=== PATIENT | male | born 1985 | race African-American/Black ===

== ENCOUNTER → 2023-09-02 | Outpatient (CLI) | payer OTHER ==
[2023-09-02 12:27] LABS: Basophils # (auto) 0 10 ^3/uL (0-0.2); Basophils % (auto) 0.6 % (0.0-2.0); Eosinophils # (auto) 0.1 10 ^3/uL (0-0.8); Eosinophils % (auto) 2.1 % (0.0-7.0); Hematocrit 47.2 % (41.0-53.0); Hemoglobin 15.4 g/dL (13.5-17.5); Lymphocytes # (auto) 1.2 10 ^3/uL (0.4-5.4); Lymphocytes % (auto) 38.2 % (10.0-50.0); Mean Corpuscular Hemoglobin 27.1 pg (28.0-32.0); Mean Corpuscular Hgb Conc. 32.6 g/dL (32.0-36.0); Monocytes # (auto) 0.5 10 ^3/uL (0-1.3); Neutrophils # (auto) 1.4 10 ^3/uL (1.6-8.6); Neutrophils % (auto) 43.1 % (37.0-80.0); Nucleated Red Blood Cells % 0.2 %; Red Blood Cells 5.69 10^6/uL (4.5-5.90); White Blood Cell 3.2 10^3/uL (4.4-10.8)
[2023-09-02 13:08] LABS: Alanine Aminotransferase 35 U/L (7-40); Albumin 4.3 g/dL (3.2-4.8); Alkaline Phosphatase 62 U/L (46-116); Anion Gap 7 (5-15); Aspartate Aminotransferase 32 U/L (13-40); BUN/Creatinine Ratio 10.1 (10.0-20.0); Blood Urea Nitrogen 10 mg/dL (9-23); Calcium 9.8 mg/dL (8.5-10.1); Carbon Dioxide 31 mmol/L (20-30); Chloride 102 mmol/L (98-107); Cholesterol 211 mg/dL (< 200); Glucose 87 mg/dL (74-106); LDL Cholesterol 146 mg/dL (< 100); Sodium 140 mmol/L (136-145); Triglycerides 76 mg/dL (< 150)
[2023-09-02 13:09] LABS: Bilirubin, Direct 0.2 mg/dL (<0.3); Bilirubin, Total 0.7 mg/dL (0.2-1.0); HDL Cholesterol 50 mg/dL (40-59); Total Protein 8.8 g/dL (5.7-8.2)
[2023-09-02 13:12] LABS: Free T3 3.64 pg/mL (2.3-4.2); Free T4 (Free Thyroxine) 0.96 ng/dL (0.89-1.76)
== END | disposition home or self-care (01) ==
LOC: LAB 11:59
PROVIDERS: ATTEND Student in an Organized Health Care Education/Training Program
DX: R07.9 Chest pain, unspecified (principal); R00.2 Palpitations; Z82.49 Family history of ischemic heart disease and other diseases of the circulatory system
CPT/HCPCS: 36415; 80053; 80061; 80076; 82947; 84403; 84439; 84443; 84481; 85025

== ENCOUNTER → 2023-09-02 | Outpatient (CLI) | payer OTHER | END | disposition home or self-care (01) | LOC: XYW 14:29 | PROVIDERS: ATTEND Student in an Organized Health Care Education/Training Program | DX: I08.8 Other rheumatic multiple valve diseases (principal); R07.9 Chest pain, unspecified | CPT/HCPCS: 93306 ==

== ENCOUNTER → 2023-09-18 | Outpatient (CLI) | payer OTHER ==
[2023-09-18 10:57] VITALS: BP 138/84; PULSE 69; RESP 15
== END | disposition home or self-care (01) ==
LOC: XYW 09:39
PROVIDERS: ATTEND Student in an Organized Health Care Education/Training Program
DX: R07.9 Chest pain, unspecified (principal); R00.2 Palpitations; Z82.49 Family history of ischemic heart disease and other diseases of the circulatory system; Z83.42 Family history of familial hypercholesterolemia
CPT/HCPCS: 93017

== ENCOUNTER 2023-10-16 09:03 | Day surgery (SDC) | payer OTHER ==
[~2023-10-16] VITALS: Ht 180.3 cm; Wt 91.2 kg
[2023-10-16 11:31] LABS: Hematocrit 46.1 % (41.0-53.0); Hemoglobin 15.1 g/dL (13.5-17.5); Mean Corpuscular Hemoglobin 27.4 pg (28.0-32.0); Mean Corpuscular Hgb Conc. 32.7 g/dL (32.0-36.0); Mean Corpuscular Volume 83.7 fL (80.0-100.0); Red Blood Cells 5.51 10^6/uL (4.5-5.90); Red Cell Distribution Width 13.9 % (11.8-14.3); White Blood Cell 3.1 10^3/uL (4.4-10.8)
[2023-10-16 11:41] LABS: Chloride 104 mmol/L (98-107); Sodium 138 mmol/L (136-145)
[2023-10-16] MEDS ORDERED: ANGIOMAX 250 MG VIAL IV ONE (11:41)
[2023-10-16] MEDS ORDERED: HEPARIN SODIUM (PORCINE) 5000 UNITS/ML 1ML VIAL ONE (11:41)
[2023-10-16 11:42] LABS: Anion Gap 5 (5-15); Calcium 9.3 mg/dL (8.7-10.4); Carbon Dioxide 29 mmol/L (20-30)
[2023-10-16] MEDS ORDERED: SODIUM CHL 0.9% 0 ML ONE (11:42)
[2023-10-16] MEDS ORDERED: VERAPAMIL 2.5MG/ML INJ 2ML VIAL IV ONE (11:42)
[2023-10-16] MEDS ORDERED: MIDAZOLAM HCL 2MG/2ML 2ml VIAL (1mg/ml) ONE (11:42)
[2023-10-16] MEDS ORDERED: fentaNYL CITRATE 100 MCG/2 ML VL ONE (11:42)
[2023-10-16 11:47] LABS: BUN/Creatinine Ratio 7.8 (10.0-20.0); Blood Urea Nitrogen 8 mg/dL (9-23); Glucose 85 mg/dL (74-106); INR 1.1 (0.9-1.15); Partial Thromboplastin Time 29.3 SEC (24.5-34.5); Prothrombin Time 11.5 sec (9.3-11.8)
[2023-10-16 11:59] LABS: Band Neutrophils % (manual) 0
[2023-10-16 12:00] LABS: Basophils % (manual) 0 (0.0-2.0); Blast Cells 0; Metamyelocytes % 0; Myelocytes % 0; Promyelocytes % 0; Reactive Lymphocytes 0
[2023-10-16] MEDS ORDERED: LIDOCAINE 2%HCL (LOCAL ANESTH.) INJ 20ML MDV ONE (12:02)
[2023-10-16 13:20] LABS: Eosinophils % (manual) 2 (0-7); Lymphocytes % (manual) 38 (10.0-50.0); Monocytes % (manual) 25 (0-12)
[2023-10-16 13:21] LABS: Platelet Estimate Decreased
== END 2023-10-16 14:43 | disposition home or self-care (01) ==
LOC: CATH 09:03
PROVIDERS: ATTEND Student in an Organized Health Care Education/Training Program
DX: R94.39 Abnormal result of other cardiovascular function study (principal); R07.9 Chest pain, unspecified; I20.0 Unstable angina; E78.5 Hyperlipidemia, unspecified; Z88.0 Allergy status to penicillin
CPT/HCPCS: 36415; 71045; 80048; 85007; 85027; 85610; 85730; 93458; C1725; C1894; J1644; J2250; J3010; 99152